=== PATIENT | male | born 1950 | race Two or more races ===

== ENCOUNTER 2018-10-22 17:45 | Inpatient (IN) | payer SELFPAY ==
[~2018-10-22] VITALS: Ht 175.3 cm; Wt 65.0 kg
[2018-10-22] MEDS ORDERED: MORPHINE SULFATE 4 MG/ML CPJ (NOT FOR IM USE) IV ONE (22:15)
[2018-10-22 23:11] LABS: BASOPHILS % 0.3 % (0.0-2.0); EOSINOPHILS % 0.1 % (0.0-5.0); HEMATOCRIT. 38.8 % (42.0-52.0); HEMOGLOBIN. 13.1 g/dL (14.0-18.0); LYMPHOCYTES % 8.5 % (20.0-50.0); MEAN CORPUSCULAR HEMOGLOBIN 33.3 pg (28.0-32.0); MEAN CORPUSCULAR VOLUME 98.9 fL (80.0-94.0); MEAN PLATELET VOLUME 8.1 fl (7.4-10.4); MONOCYTES % 9.6 % (2.0-8.0); NEUTROPHILS % 81.5 % (40.0-76.0); PLATELET 255 x1000/uL (130-400); RED BLOOD CELL COUNT 3.93 mill/uL (4.7-6.1); RED CELL DISTRIBUTION WIDTH 13.7 % (11.6-14.6)
[2018-10-22 23:13] LABS: CHLORIDE 106 mEq/L (98-107)
[2018-10-22 23:16] LABS: INR 1.1; PARTIAL THROMBOPLASTIN TIME 24.4 sec (23.4-31.0); PROTHROMBIN TIME 10.7 sec (9.1-11.1)
[2018-10-23] MEDS ORDERED: MORPHINE SULFATE 4 MG/ML CPJ (NOT FOR IM USE) IV ONE (00:30)
[2018-10-23] MEDS ORDERED: MORPHINE SULFATE 4 MG/ML CPJ (NOT FOR IM USE) IV STA (07:42)
[2018-10-23] MEDS ORDERED: ONDANSETRON HCL 4MG/2ML INJ IV STA (07:42)
[2018-10-23] MEDS ORDERED: OXYCODONE HCL/ACETAMINOPHEN 5/325MG TABLET PO ONE (16:00)
[2018-10-23] MEDS ORDERED: DOCUSATE SODIUM 100MG CAPSULE PO PRN (18:45)
[2018-10-23] MEDS ORDERED: ACETAMINOPHEN 325MG TABLET PO PRN (18:45)
[2018-10-23] MEDS ORDERED: CLONIDINE 0.1MG TABLET PO PRN (18:45)
[2018-10-23 19:46] LABS: INR 1.1; PROTHROMBIN TIME 11.5 sec (9.1-11.1)
[2018-10-23] MEDS ORDERED: MORPHINE SULFATE 4 MG/ML CPJ (NOT FOR IM USE) IV PRN (21:00)
[2018-10-24 01:47] VITALS: BP 155/65
[2018-10-24] MEDS ORDERED: MULT-1234 PO (03:16)
[2018-10-24 04:00] VITALS: BP 143/72
[2018-10-24 07:19] LABS: HEMATOCRIT. 38.7 % (42.0-52.0); MEAN CORPUSCULAR HEMOGLOBIN 33.5 pg (28.0-32.0); MEAN CORPUSCULAR VOLUME 99.5 fL (80.0-94.0); MEAN PLATELET VOLUME 8.1 fl (7.4-10.4); PLATELET 218 x1000/uL (130-400); RED BLOOD CELL COUNT 3.89 mill/uL (4.7-6.1); RED CELL DISTRIBUTION WIDTH 13.8 % (11.6-14.6)
[2018-10-24 07:48] LABS: CHLORIDE 107 mEq/L (98-107)
[2018-10-24 07:55] LABS: PHOSPHORUS 1.8 mg/dL (2.5-4.9)
[2018-10-24 08:00] VITALS: BP 136/64
[2018-10-24] MEDS ORDERED: BACITRACIN 15GM TUBE TOP ONE (09:27)
[2018-10-24] MEDS ORDERED: VANCOMYCIN HCL 500 MG/VIAL ONE (09:27)
[2018-10-24] MEDS ORDERED: NORMAL SALINE 0.9% 10 ML SYR ONE (09:27)
[2018-10-24] MEDS ORDERED: BACITRACIN 50,000 UNITS/VIAL ONE (09:28)
[2018-10-24] MEDS ORDERED: MIDAZOLAM HCL 2 MG/2 ML VIAL ONE (11:04)
[2018-10-24] MEDS ORDERED: FENTANYL CITRATE/PF 50MCG/ML 2ML VIAL ONE (11:04)
[2018-10-24] MEDS ORDERED: GLYCOPYRROLATE 0.2 MG/ML 2ML VIAL ONE (12:10)
[2018-10-24] MEDS ORDERED: ONDANSETRON HCL 4MG/2ML INJ IV PRN (13:00)
[2018-10-24] MEDS ORDERED: FENTANYL CITRATE/PF 50MCG/ML 2ML VIAL IV PRN (13:00)
[2018-10-24] MEDS ORDERED: PROPOFOL 1000MG/100ML VIAL IV ONE (13:10)
[2018-10-24] MEDS ORDERED: BUPIVACAINE HCL/DEXTROSE/PF 0.75% 2ML AMP INJ ONE (13:10)
[2018-10-24] MEDS ORDERED: LIDOCAINE HCL/PF 1% 10 MG/ML 5ML VIAL ONE (13:10)
[2018-10-24] MEDS: HYDROMORPHONE HCL/PF 2MG/ML CPJ IV PRN ×2 (13:29→14:10)
[2018-10-24] MEDS ORDERED: POTASSIUM PHOS,M-BASIC-D-BASIC 15 MMOL in DEXT 5% WATER 250 ML IV SCH (14:00)
[2018-10-24] MEDS: CEFAZOLIN 1000MG PREMIX 50 ML IV SCH ×2 (14:48→21:20)
[2018-10-24 15:20] LABS: PLATELET ESTIMATE NORMAL
[2018-10-24 16:00] VITALS: BP 106/60
[2018-10-24 20:00] VITALS: BP 98/57
[2018-10-24] MEDS: HYDROCODONE/ACETAMINOPHEN 5/325MG TABLET PO PRN (20:03)
[2018-10-25] VITALS: BP 108/72
[2018-10-25] MEDS: HYDROCODONE/ACETAMINOPHEN 5/325MG TABLET PO PRN ×2 (02:56→11:15)
[2018-10-25 04:00] VITALS: BP 108/58
[2018-10-25 07:24] LABS: HEMATOCRIT. 36.1 % (42.0-52.0); HEMOGLOBIN. 12.4 g/dL (14.0-18.0); MEAN CORPUSCULAR HEMOGLOBIN 34.3 pg (28.0-32.0); MEAN CORPUSCULAR VOLUME 100.2 fL (80.0-94.0); MEAN PLATELET VOLUME 8.3 fl (7.4-10.4); PLATELET 196 x1000/uL (130-400); RED CELL DISTRIBUTION WIDTH 13.8 % (11.6-14.6)
[2018-10-25 08:00] VITALS: BP 126/64
[2018-10-25 08:34] LABS: CHLORIDE 105 mEq/L (98-107)
[2018-10-25 08:42] LABS: PHOSPHORUS 1.5 mg/dL (2.5-4.9)
[2018-10-25 09:28] LABS: PLATELET ESTIMATE NORMAL
[2018-10-25] MEDS ORDERED: POTASSIUM PHOS,M-BASIC-D-BASIC 20 MMOL in DEXT 5% WATER 243.3333 ML IV SCH (11:00)
[2018-10-25 12:00] VITALS: BP 101/55
[2018-10-25 16:00] VITALS: BP 110/63
[2018-10-25] MEDS: DOCUSATE SODIUM 100MG CAPSULE PO SCH (16:28)
[2018-10-25] MEDS: ENOXAPARIN 40MG/0.4ML SYR SUBCUT SCH (16:29)
[2018-10-25] MEDS ORDERED: LACTULOSE 20G/30ML UDC PO SCH (17:00)
[2018-10-25 20:00] VITALS: BP 131/56
[2018-10-25] MEDS: POLYETHYLENE GLYCOL 3350 (17GM) 1 DOSE PACK PO SCH (20:49)
[2018-10-26] VITALS (7 sets, daily range): BP systolic 101–124; BP diastolic 57–66
[2018-10-26 07:04] LABS: CHLORIDE 104 mEq/L (98-107)
[2018-10-26 07:14] LABS: PHOSPHORUS 1.6 mg/dL (2.5-4.9)
[2018-10-26 07:22] LABS: HEMATOCRIT. 35.7 % (42.0-52.0); HEMOGLOBIN. 12.1 g/dL (14.0-18.0); MEAN CORPUSCULAR HEMOGLOBIN 33.6 pg (28.0-32.0); MEAN PLATELET VOLUME 8.2 fl (7.4-10.4); PLATELET 215 x1000/uL (130-400); RED BLOOD CELL COUNT 3.61 mill/uL (4.7-6.1); RED CELL DISTRIBUTION WIDTH 13.3 % (11.6-14.6)
[2018-10-26 07:30] LABS: VITAMIN B12 SERUM 454 pg/mL (211-911)
[2018-10-26 07:33] LABS: FOLIC ACID (FOLATE) SERUM > 20.00 ng/mL (>5.38)
[2018-10-26] MEDS: HYDROCODONE/ACETAMINOPHEN 5/325MG TABLET PO PRN (10:04)
[2018-10-26] MEDS: DOCUSATE SODIUM 100MG CAPSULE PO SCH ×2 (10:05→17:00)
[2018-10-26] MEDS ORDERED: POTASSIUM CHLORIDE 20MEQ TABLET SR PO NR (13:45)
[2018-10-26] MEDS ORDERED: POTASSIUM PHOS,M-BASIC-D-BASIC 20 MMOL in DEXT 5% WATER 243.3333 ML IV NR (15:30)
[2018-10-26] MEDS: ENOXAPARIN 40MG/0.4ML SYR SUBCUT SCH (16:58)
[2018-10-26] MEDS: CYANOCOBALAMIN 1000MCG/ML VIAL IM SCH (18:46)
[2018-10-26] MEDS: POLYETHYLENE GLYCOL 3350 (17GM) 1 DOSE PACK PO SCH (20:19)
[2018-10-26 22:37] LABS: PLATELET ESTIMATE NORMAL
[2018-10-27] VITALS: BP 109/59
[2018-10-27 04:00] VITALS: BP 102/56
[2018-10-27 07:10] LABS: HEMATOCRIT. 34.8 % (42.0-52.0); HEMOGLOBIN. 11.7 g/dL (14.0-18.0); MEAN CORPUSCULAR HEMOGLOBIN 33.6 pg (28.0-32.0); MEAN CORPUSCULAR VOLUME 99.7 fL (80.0-94.0); MEAN PLATELET VOLUME 7.9 fl (7.4-10.4); PLATELET 246 x1000/uL (130-400); RED CELL DISTRIBUTION WIDTH 13.6 % (11.6-14.6)
[2018-10-27 07:35] LABS: CHLORIDE 106 mEq/L (98-107)
[2018-10-27 08:00] VITALS: BP 110/60
[2018-10-27] MEDS: DOCUSATE SODIUM 100MG CAPSULE PO SCH ×2 (09:32→16:25)
[2018-10-27] MEDS: CYANOCOBALAMIN 1000MCG/ML VIAL IM SCH (09:32)
[2018-10-27] MEDS ORDERED: POTASSIUM CHLORIDE 20MEQ/PACKET PO NR (11:30)
[2018-10-27 12:00] VITALS: BP 116/58
[2018-10-27] MEDS: HYDROCODONE/ACETAMINOPHEN 5/325MG TABLET PO PRN (13:59)
[2018-10-27] MEDS: ENOXAPARIN 40MG/0.4ML SYR SUBCUT SCH (14:01)
[2018-10-27 15:20] LABS: PLATELET ESTIMATE NORMAL
[2018-10-27 16:00] VITALS: BP 100/51
[2018-10-27 20:00] VITALS: BP 115/61
[2018-10-27] MEDS: POLYETHYLENE GLYCOL 3350 (17GM) 1 DOSE PACK PO SCH (20:08)
[2018-10-28] VITALS: BP 105/60
[2018-10-28 04:00] VITALS: BP 122/76
[2018-10-28 08:00] VITALS: BP 117/64
[2018-10-28] MEDS: DOCUSATE SODIUM 100MG CAPSULE PO SCH ×2 (09:00→17:00)
[2018-10-28] MEDS: CYANOCOBALAMIN 1000MCG/ML VIAL IM SCH (09:01)
[2018-10-28 11:57] VITALS: BP 101/55
[2018-10-28 16:00] VITALS: BP 112/60
[2018-10-28] MEDS: ENOXAPARIN 40MG/0.4ML SYR SUBCUT SCH (17:48)
[2018-10-28 20:00] VITALS: BP 115/58
[2018-10-28] MEDS: POLYETHYLENE GLYCOL 3350 (17GM) 1 DOSE PACK PO SCH (20:34)
[2018-10-28] MEDS: ZOLPIDEM TARTRATE 5MG TABLET PO PRN (23:36)
[2018-10-29] VITALS: BP 111/56
[2018-10-29 04:00] VITALS: BP 114/59
[2018-10-29 08:00] VITALS: BP 115/61
[2018-10-29] MEDS: DOCUSATE SODIUM 100MG CAPSULE PO SCH ×2 (09:00→17:00)
[2018-10-29] MEDS: CYANOCOBALAMIN 1000MCG/ML VIAL IM SCH (09:47)
[2018-10-29 12:00] VITALS: BP 148/67
[2018-10-29] MEDS ORDERED: HYDROCODONE/ACETAMINOPHEN 5/325MG TABLET PO PRN (12:30)
[2018-10-29 16:00] VITALS: BP 99/53
[2018-10-29] MEDS: ENOXAPARIN 40MG/0.4ML SYR SUBCUT SCH (16:01)
[2018-10-29 20:00] VITALS: BP 97/52
[2018-10-29] MEDS: POLYETHYLENE GLYCOL 3350 (17GM) 1 DOSE PACK PO SCH (20:47)
[2018-10-29] MEDS: ZOLPIDEM TARTRATE 5MG TABLET PO PRN (21:38)
[2018-10-30] VITALS: BP 105/56
[2018-10-30 04:00] VITALS: BP 116/58
[2018-10-30 04:11] LABS: 25-HYDROXY VITAMIN D3 14 ng/mL (.)
[2018-10-30 07:23] LABS: HEMATOCRIT. 33.7 % (42.0-52.0); HEMOGLOBIN. 11.3 g/dL (14.0-18.0); MEAN CORPUSCULAR VOLUME 98.5 fL (80.0-94.0); MEAN PLATELET VOLUME 7.7 fl (7.4-10.4); PLATELET 456 x1000/uL (130-400); RED BLOOD CELL COUNT 3.42 mill/uL (4.7-6.1); RED CELL DISTRIBUTION WIDTH 13.3 % (11.6-14.6)
[2018-10-30 07:39] LABS: CHLORIDE 108 mEq/L (98-107)
[2018-10-30 08:00] VITALS: BP 129/72
[2018-10-30] MEDS: DOCUSATE SODIUM 100MG CAPSULE PO SCH (09:00)
[2018-10-30] MEDS: CYANOCOBALAMIN 1000MCG/ML VIAL IM SCH (09:36)
[2018-10-30 11:59] VITALS: BP 107/62
[2018-10-30 12:21] VITALS: BP 107/62
[2018-10-30] MEDS ORDERED: ERGOCALCIFEROL 50000UNITS CAPSULE PO SCH (15:00)
[2018-10-30 16:47] LABS: PLATELET ESTIMATE INCREASED
== END 2018-10-30 14:42 | disposition home health service (06) | DRG 301 ==
LOC: ER 17:45 → 8WST 10-23 16:19 → ENRESERV 10-23 23:51 → 6EST 10-30 06:55
PROVIDERS: ADMIT Family Medicine Adult Medicine; ATTEND Family Medicine Adult Medicine
PROC: 0SRR0JZ Replacement of Right Hip Joint, Femoral Surface with Synthetic Substitute, Open Approach (ICD-10-PCS; principal; 2018-10-24)
DX: S72.001A Fracture of unspecified part of neck of right femur, initial encounter for closed fracture (principal); D64.9 Anemia, unspecified; E83.39 Other disorders of phosphorus metabolism; E87.6 Hypokalemia; E83.51 Hypocalcemia; R73.9 Hyperglycemia, unspecified; K59.00 Constipation, unspecified; H40.9 Unspecified glaucoma; R26.9 Unspecified abnormalities of gait and mobility; H26.9 Unspecified cataract; R53.81 Other malaise; W01.0XXA Fall on same level from slipping, tripping and stumbling without subsequent striking against object, initial encounter; Y92.512 Supermarket, store or market as the place of occurrence of the external cause; Y93.89 Activity, other specified; Y99.8 Other external cause status; Z85.819 Personal history of malignant neoplasm of unspecified site of lip, oral cavity, and pharynx; Z92.3 Personal history of irradiation; Z87.891 Personal history of nicotine dependence
CPT/HCPCS: 36415; 71045; 72170; 73502; 80048; 82306; 82607; 82746; 83735; 84100; 84443; 88305; 88311; 92610; 93005; 96374; 96375; 96376; 97110; 97116; 97162; 97167; 97530; 99284; 99285; C1776; J0690; J1170; J1650; J2250; J2270; J2704; J3010; J3370; J3420; J3490; J7060